=== PATIENT | male | born 2005 | race Two or more races ===

== ENCOUNTER 2025-03-17 22:03 | Emergency (ER) | payer MEDICAID, SELFPAY ==
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
[2025-03-17 22:19] VITALS: BMI 25.7
== END 2025-03-17 22:45 | disposition home or self-care (01) ==
LOC: SERX 22:34
PROVIDERS: Emergency Provider Emergency Medicine
DX: Z02.89 Encounter for other administrative examinations (principal); Z04.1 Encounter for examination and observation following transport accident
CPT/HCPCS: 99281